=== PATIENT | female | born 1960 | race Caucasian/White ===

== ENCOUNTER 2018-04-09 16:14 | Observation (INO) | payer MEDICARE, BC ==
[2018-04-09 16:26] VITALS: BMI 25.4
--- NOTE | 2018-04-09 16:53 | ED PDOC ---
Arrival/HPI - General Chief Complaint: Eye Problem Time Seen by Provider: 04/09/18 16:20 Historian: Patient - History of Present Illness Narrative History of Present Illness (Text): 04/09/18 16:51 58 year old female whose past medical history includes brain cancer(last chemo and gamma knife in February 2018), who presents to the emergency department complaining of acute vision loss. Patient reports being at home when she noticed her vision becoming blurry, dim, and was unable to see objects at a close distance clearly. Patient denies headache, nausea, vomiting, dizziness, prior episodes, or any other complaints. Oncologist: Dr.Joseph Kirk( [phone]) Time/Duration: Prior to Arrival Symptom Onset: Sudden Symptom Course: Unchanged Context: Home Past Medical History - Provider Review Nursing Documentation Reviewed: Yes - Cardiac Hx Cardiac Disorders: No - Pulmonary Hx Respiratory Disorders: No - Neurological Hx Neurological Disorder: Yes Other/Comment: tumor in brain. - HEENT Hx HEENT Disorder: No - Renal Hx Renal Disorder: No - Endocrine/Metabolic Hx Endocrine Disorders: No - Hematological/Oncological Hx Blood Disorders: No - Integumentary Hx Dermatological Disorder: No - Musculoskeletal/Rheumatological Hx Falls: No - Gastrointestinal Hx Gastrointestinal Disorders: No - Genitourinary/Gynecological Hx Genitourinary Disorders: No Hx Reproductive Disorders: No - Psychiatric Hx Psychophysiologic Disorder: No Hx Substance Use: No Family/Social History - Physician Review Nursing Documentation Reviewed: Yes Family/Social History: No Known Family HX Smoking Status: Never Smoked Hx Alcohol Use: No Hx Substance Use: No Allergies/Home Meds Allergies/Adverse Reactions: Allergies No Known Allergies Allergy (Verified 04/09/18 16:26) Home Medications: Home Meds Medication Instructions Recorded Confirmed No Known Home Med 04/09/18 04/09/18 Review of Systems - Physician Review All systems were reviewed & negative as marked: Yes - Review of Systems Eyes: Vision Changes Gastrointestinal: absent: Nausea, Vomiting Neurological: absent: Headache, Dizziness Physical Exam Vital Signs Reviewed: Yes Vital Signs Temp Pulse Resp BP Pulse Ox 04/09/18 19:28 97.8 F 74 16 121/78 96 04/09/18 17:12 98.4 F 78 18 133/81 98 Temperature: Afebrile Blood Pressure: Normal Pulse: Regular Respiratory Rate: Normal Appearance: Positive for: Well-Appearing Mental Status: Positive for: Alert and Oriented X 3 - Systems Exam Head: Present: Atraumatic, Normocephalic Pupils: Present: PERRL Extroacular Muscles: Present: EOMI Conjunctiva: Present: Normal Mouth: Present: Moist Mucous Membranes Neck: Present: Normal Range of Motion Respiratory/Chest: Present: Clear to Auscultation, Good Air Exchange. No: Respiratory Distress, Accessory Muscle Use Cardiovascular: Present: Regular Rate and Rhythm, Normal S1, S2. No: Murmurs Abdomen: Present: Other (Obese). No: Tenderness, Distention, Peritoneal Signs Back: Present: Normal Inspection Upper Extremity: Present: Normal Inspection. No: Cyanosis, Edema Lower Extremity: Present: Normal Inspection. No: Edema Neurological: Present: GCS=15, CN II-XII Intact, Speech Normal Skin: Present: Warm, Dry, Normal Color. No: Rashes Psychiatric: Present: Alert, Oriented x 3, Normal Insight, Normal Concentration Medical Decision Making ED Course and Treatment: 04/09/18 16:55 Impression: 58 year old female complaining of acute vision changes that started earlier today. Differential Diagnosis included but are not limited to: Amaurosis Fugax Central retinal artery occlusion Retinal detachment Plan: -- Head CT without contrast -- Labs -- Blood work -- Cardiac enzyme -- Chest X-ray -- Urinalysis -- Reassess and disposition Prior Visits: Notes and results from previous visits were reviewed. Progress Notes: 04/09/18 18:30 Discussed case with Internal medicine residents, who are aware of and will evaluate patient. 04/09/18 19:15 Placed a call for . 04/09/18 19:30 Spoke to biomedical photographer who endorsed case to . 04/09/18 19:36 Discussed case with , who is aware of patient and refused the case. 04/09/18 19:56 Discussed plan with patient and . 04/09/18 19:58 Discussed case with , who is aware of and agrees to admit patient under his service. - Lab Interpretations Lab Results: 04/09/18 17:30 04/09/18 17:30 Lab Results 04/09/18 17:30: PT 10.5, INR 0.92, APTT 21.0 L 04/09/18 17:30: Sodium 138, Potassium 3.8, Chloride 102, Carbon Dioxide 27, Anion Gap 13, BUN 30 H, Creatinine 0.5 L, Est GFR ( Amer) > 60, Est GFR ( Non-Af Amer) > 60, Random Glucose 51 L, Calcium 9.2, Total Bilirubin 0.6, AST 20 , ALT 66 H, Alkaline Phosphatase 83, Troponin I < 0.01, Total Protein 6.4, Albumin 3.7, Globulin 2.7, Albumin/Globulin Ratio 1.4 04/09/18 17:30: WBC 14.4 H, RBC 4.84, Hgb 14.7, Hct 41.1, MCV 84.9, MCH 30.4, MCHC 35.8, RDW 15.1 H, Plt Count 194, MPV 8.8, Gran % 79.0 H, Lymph % (Auto) 14.1 L, [place] % (Auto) 6.8 H, Eos % (Auto) 0.0 L, Baso % (Auto) 0.1, Gran # 11.36 H, Lymph # (Auto) 2.0, [place] # (Auto) 1.0 H, Eos # (Auto) 0.0, Baso # (Auto ) 0.01 I have reviewed the lab results: Yes - RAD Interpretation Narrative RAD Interpretations (Text): 04/09/18 Chest X-ray: Creator : Greyson Arellano MD IMPRESSION: Retrocardiac density may be related to large hiatal hernia, eventration of the left hemidiaphragm or large mass. This was not present on the chest radiograph from January 2012. Correlation with interval imaging is recommended, if any. Alternatively, CT scan of the chest can be obtained for further evaluation as clinically warranted. 04/09/18 19:[address] Without Contrast: Creator : Ralph Peterson MD IMPRESSION: Infiltrating hyperdense mass in regina and midbrain and right cerebral peduncle with central necrosis. Recommend evaluation with gadolinium enhanced magnetic resonance imaging. No evidence herniation or ventriculomegaly. Radiology Orders: 04/09/18 16:52 HEAD W/O CONTRAST [CT] Stat CHEST PORTABLE [RAD] Stat Primary Care Coordinator: Radiologist - Scribe Statement The provider has reviewed the documentation as recorded by the Lyly Gerber Provider Scribe Attestation: All medical record entries made by the Scribe were at my direction and personally dictated by me. I have reviewed the chart and agree that the record accurately reflects my personal performance of the history, physical exam, medical decision making, and the department course for this patient. I have also personally directed, reviewed, and agree with the discharge instructions and disposition. Disposition/Present on Arrival - Present on Arrival History of DVT/PE: No History of Uncontrolled Diabetes: No Urinary Catheter: No History of Decub. Ulcer: No History Surgical Site Infection Following: None - Disposition Referrals: Harmeet Gill MD [Primary Care Provider] - Follow up with primary Forms: [employer] (Romansh)
--- NOTE | 2018-04-09 17:31 | RAD ---
Date of service: 04/09/2018 HISTORY: ams COMPARISON: Chest radiograph dated 01/23/2012 of. FINDINGS: LUNGS: New retrocardiac density. PLEURA: No significant pleural effusion identified, no pneumothorax apparent. CARDIOVASCULAR: Atherosclerotic aortic calcifications. Cardiomediastinal silhouette unchanged. OSSEOUS STRUCTURES: Partially imaged right shoulder reverse arthroplasty. Otherwise, unchanged. VISUALIZED UPPER ABDOMEN: Normal. OTHER FINDINGS: Right internal jugular access chest port with tip in the SVC. IMPRESSION: Retrocardiac density may be related to large hiatal hernia, eventration of the left hemidiaphragm or large mass. This was not present on the chest radiograph from January 2012. Correlation with interval imaging is recommended, if any. Alternatively, CT scan of the chest can be obtained for further evaluation as clinically warranted.
[2018-04-09 17:39] LABS: BASO # 0.01 K/mm3 (0.0-2.0); BASO % 0.1 % (0.0-3.0); GRAN # 11.36 (1.4-6.5); HEMOGLOBIN 14.7 g/dL (12.0-16.0); LYMPH % 14.1 % (22.0-35.0); MEAN CELL VOLUME 84.9 fl (80.0-105.0); MEAN CORPUSCULAR HEMOGLOBIN 30.4 pg (25.0-35.0); MEAN CORPUSCULAR HGB CONC 35.8 g/dl (31.0-37.0); MEAN PLATELET VOLUME 8.8 fl (7.0-11.0); MONO % 6.8 % (1.0-6.0); RBC 4.84 10^6/uL (3.5-6.1); RED CELL DISTRIBUTION WIDTH 15.1 % (11.5-14.5); WHITE BLOOD COUNT 14.4 10^3/ul (4.5-11.0)
[2018-04-09 17:49] LABS: BLOOD UREA NITROGEN 30 mg/dL (7-21); GFR NON-AFRICAN AMERICAN > 60
[2018-04-09 17:50] LABS: ALB/GLOB RATIO 1.4 (1.1-1.8); ALBUMIN 3.7 g/dL (3.0-4.8); ALT/SGPT 66 U/L (7-56); AST/SGOT 20 U/L (14-36); CALCIUM 9.2 mg/dL (8.4-10.5); INR 0.92; PROTHROMBIN TIME 10.5 SECONDS (9.4-12.5)
[2018-04-09 18:00] LABS: TROPONIN I < 0.01 ng/mL
--- NOTE | 2018-04-09 18:53 | CT ---
Date of service: 04/09/2018 PROCEDURE: CT HEAD WITHOUT CONTRAST. HISTORY: ams COMPARISON: Not available TECHNIQUE: Axial computed tomography images were obtained through the head/brain without intravenous contrast. Radiation dose: Total exam DLP = 854.13 mGy-cm. This CT exam was performed using one or more of the following dose reduction techniques: Automated exposure control, adjustment of the mA and/or kV according to patient size, and/or use of iterative reconstruction technique. FINDINGS: HEMORRHAGE: No intracranial hemorrhage. BRAIN: No Hyperdense mass in regina and midbrain extending through right cerebral peduncle. Centrally necrotic. Recommend further evaluation with gadolinium enhanced magnetic resonance imaging. No evidence of surrounding vasogenic edema. There is a punctate calcifications seen on the left side of this mass at the level of the regina. Uncertain significance. Mild atrophy, greater than expected for patient age. Mild chronic periventricular white matter ischemic change. No evidence of acute infarct. VENTRICLES: Unremarkable. No hydrocephalusNo ventriculomegaly. Minimal mass effect upon the right lateral aspect of the aqueduct as a result of this pontine/midbrain mass. . CALVARIUM: Unremarkable. PARANASAL SINUSES: Unremarkable as visualized. No significant inflammatory changes. MASTOID AIR CELLS: Unremarkable as visualized. No inflammatory changes. OTHER FINDINGS: None. IMPRESSION: Infiltrating hyperdense mass in regina and midbrain and right cerebral peduncle with central necrosis. Recommend evaluation with gadolinium enhanced magnetic resonance imaging. No evidence herniation or ventriculomegaly.
[2018-04-09] MEDS ORDERED: Morphine 2 mg/ml ISec IVP PRN (21:53)
[2018-04-09] MEDS: Sodium Chloride 0.45% 1,000 ML IV SCH (22:27)
[2018-04-09 22:28] VITALS: RESP 20
[2018-04-10 05:14] LABS: URINE BILIRUBIN NEGATIVE (NEGATIVE); URINE BLOOD LARGE (NEGATIVE); URINE GLUCOSE (UA) 100 mg/dL (NEGATIVE); URINE LEUKOCYTE ESTERASE SMALL Leu/uL (NEGATIVE); URINE PROTEIN TRACE mg/dL (<30 mg/dL)
[2018-04-10 05:24] LABS: URINE APPEARANCE SL CLOUDY (CLEAR)
[2018-04-10 05:25] LABS: URINE COLOR YELLOW (YELLOW)
[2018-04-10 05:33] LABS: URINE BACTERIA MANY (NEG); URINE WBC TNTC /hpf (0-6)
[2018-04-10 06:20] LABS: HEMOGLOBIN 12.4 g/dL (12.0-16.0); MEAN CELL VOLUME 86.2 fl (80.0-105.0); MEAN CORPUSCULAR HEMOGLOBIN 29.6 pg (25.0-35.0); MEAN CORPUSCULAR HGB CONC 34.3 g/dl (31.0-37.0); MEAN PLATELET VOLUME 8.7 fl (7.0-11.0); RBC 4.19 10^6/uL (3.5-6.1); RED CELL DISTRIBUTION WIDTH 15.1 % (11.5-14.5)
[2018-04-10 06:48] LABS: WHITE BLOOD COUNT 11.5 10^3/ul (4.5-11.0)
[2018-04-10 07:08] LABS: ALB/GLOB RATIO 1.3 (1.1-1.8); ALBUMIN 2.9 g/dL (3.0-4.8); ALT/SGPT 59 U/L (7-56); AST/SGOT 18 U/L (14-36); BLOOD UREA NITROGEN 27 mg/dL (7-21); CALCIUM 8.2 mg/dL (8.4-10.5); GFR NON-AFRICAN AMERICAN > 60
[2018-04-10] MEDS: cefTRIAXone 1 gm 1 GM/100 ML BAG IVPB SCH (09:21)
--- NOTE | 2018-04-10 10:41 | CP.PCM.CON ---
History of Present Illness - History of Present Illness History of Present Illness: Palliative consult requested by Dr Sherice Hernandez Reason: Goals of care /hospice discussion 58 year old female with history of brain cancer (s/p chemo/gamma knife) who presented to ED yesterday with acute vision loss. She states that her vision became blurry, dim and that she was unable to see object from afar. She states this was causing her to fall. She denied headache, nausea, vomiting, dizziness, chest/abdominal pain, neuropathy. CT of head showed hyperdense mass in regina and mid brain extending through right cerebral peduncle. Centrally necrotic, there is a punctate calcification seen on the left side of mass at the level of the regina, mild atrophy greater than expected for this patient age.Mild chronic periventricular white matter ischemic changes. MRI with nathna recommend for further evaluation.Chest x ray showed retocardiac density which may be related to hiatal hernia, eventration of the left hemidiaphragm or large mass. CT of chest recommended for for further evaluation. Labs: Wbc 14.4, Hgb 14.7, Plt 194,NA 138, K 3.8,Bun 30, K 0.5, glucose 73, AST 20, Alt 66, Alk phos 83, Troponin 0.1, albumin 3.7. Urine + glucose blood, trace leukocytes, nay bacteria PMHX brain tumor, DM,right shoulder fracture PSH:right chest port a cath, gamma RT Social History: Never smoker, no alcohol or drug use. lives with spouse. Family History: Non contributory. Advance Care Planning: The patient does not have an Advanced Directive. Review of Systems:As per HPI, 12 point review otherwise negative Past Patient History - Past Social History Smoking Status: Never Smoked - CARDIAC Hx Cardiac Disorders: Yes Hx Hypercholesterolemia: Yes - PULMONARY Hx Respiratory Disorders: No - NEUROLOGICAL Hx Neurological Disorder: Yes (left sided weakness) Other/Comment: tumor in brain. - HEENT Hx HEENT Problems: Yes (visual impairment) - RENAL Hx Chronic Kidney Disease: No - ENDOCRINE/METABOLIC Hx Endocrine Disorders: Yes Hx Diabetes Mellitus Type 2: Yes (insulin dependent) - HEMATOLOGICAL/ONCOLOGICAL Hx Blood Disorders: Yes Hx Cancer: Yes (brain tumor) Hx Chemotherapy: Yes (2016) - INTEGUMENTARY Hx Dermatological Problems: No - MUSCULOSKELETAL/RHEUMATOLOGICAL Hx Musculoskeletal Disorders: Yes Hx Falls: No Hx Fractures: Yes (right shoulder) - GASTROINTESTINAL Hx Gastrointestinal Disorders: Yes Hx Gastroesophageal Reflux: Yes - GENITOURINARY/GYNECOLOGICAL Hx Genitourinary Disorders: No - PSYCHIATRIC Hx Psychophysiologic Disorder: No - SURGICAL HISTORY Hx Surgeries: Yes Hx Orthopedic Surgery: Yes (right shoulder) Meds Allergies/Adverse Reactions: Allergies Allergy/AdvReac Type Severity Reaction Status Date / Time No Known Allergies Allergy Verified 04/09/18 16:26 - Medications Medications: Current Medications Dexamethasone (Decadron Inj) 10 mg IVP Q6H DIAZ Last Admin: 04/10/18 03:33 Dose: 10 mg Sodium Chloride (Sodium Chloride 0.45%) 1,000 mls @ 30 mls/hr IV .Q24H DIAZ Last Admin: 04/09/18 22:27 Dose: 30 mls/hr Ceftriaxone Sodium (Rocephin 1 Gram Ivpb) 1 gm in 100 mls @ 100 mls/hr IVPB DAILY DIAZ PRN Reason: Protocol Last Admin: 04/10/18 09:21 Dose: 100 mls/hr Morphine Sulfate (Morphine) 2 mg IVP Q4H PRN PRN Reason: Pain, moderate (4-7) Physical Exam - Constitutional Appears: Chronically Ill - Head Exam Additional comments: neff face - Eye Exam Eye Exam: Normal appearance, PERRL - ENT Exam ENT Exam: Mucous Membranes Moist, Normal Oropharynx - Respiratory Exam Respiratory Exam: Decreased Breath Sounds, NORMAL BREATHING PATTERN - Cardiovascular Exam Cardiovascular Exam: REGULAR RHYTHM, +S1, +S2 - GI/Abdominal Exam GI & Abdominal Exam: Normal Bowel Sounds, Soft Additional comments: no tenderness - Extremities Exam Extremities exam: Positive for: pedal edema, pedal pulses present - Neurological Exam Neurological exam: Alert, Oriented x3 - Skin Skin Exam: Dry, Warm - Additional Findings Additional findings: Palliative performance scale rating 40% Results - Vital Signs Recent Vital Signs: Last Vital Signs Temp 97.6 F 04/10/18 07:53 Pulse 71 04/10/18 07:53 Resp 20 04/10/18 07:53 BP 123/81 04/10/18 07:53 Pulse Ox 97 04/10/18 07:53 - Labs Result Diagrams: 04/10/18 06:00 04/10/18 06:00 Labs: Laboratory Results - last 24 hr 04/09/18 04/09/18 04/10/18 20:15 21:21 05:00 WBC RBC Hgb Hct MCV MCH MCHC RDW Plt Count MPV Sodium Potassium Chloride Carbon Dioxide Anion Gap BUN Creatinine Est GFR ( Amer) Est GFR (Non-Af Amer) POC Glucose (mg/dL) 73 106 Random Glucose Calcium Total Bilirubin AST ALT Alkaline Phosphatase Total Protein Albumin Globulin Albumin/Globulin Ratio Urine Color Yellow Urine Appearance Sl cloudy Urine pH 6.0 Ur Specific [place] >= 1.030 Urine Protein Trace H Urine Glucose (UA) 100 H Urine Ketones Trace H Urine Blood Large H Urine Nitrate Negative Urine Bilirubin Negative Urine Urobilinogen 1.0 H Ur Leukocyte Esterase Small H Urine RBC 2 - 5 Urine WBC Tntc Ur Epithelial Cells 1 - 3 Urine Bacteria Many 04/10/18 04/10/18 06:00 06:00 WBC 11.5 H D RBC 4.19 Hgb 12.4 D Hct 36.1 MCV 86.2 MCH 29.6 MCHC 34.3 RDW 15.1 H Plt Count 173 MPV 8.7 Sodium 134 Potassium 4.4 Chloride 99 Carbon Dioxide 28 Anion Gap 12 BUN 27 H Creatinine 0.5 L Est GFR ( Amer) > 60 Est GFR (Non-Af Amer) > 60 POC Glucose (mg/dL) Random Glucose 264 H Calcium 8.2 L Total Bilirubin 0.5 AST 18 ALT 59 H Alkaline Phosphatase 70 Total Protein 5.2 L Albumin 2.9 L Globulin 2.3 Albumin/Globulin Ratio 1.3 Urine Color Urine Appearance Urine pH Ur Specific [place] Urine Protein Urine Glucose (UA) Urine Ketones Urine Blood Urine Nitrate Urine Bilirubin Urine Urobilinogen Ur Leukocyte Esterase Urine RBC Urine WBC Ur Epithelial Cells Urine Bacteria Assessment & Plan - Assessment and Plan (Free Text) Assessment: 58 year old female with history of brain tumor last chemo 02/26, s/p gamma knife RT who presented with loss of vision, deconditioning. The patient is alert, oriented denies pain, headache. She states she last received chemotherapy in 2017, Gamma knife RT recently. States that she was fairly independent until this episode when loss of vision occurred. She lives with her who is supportive. Goals of care and advance care planning discussion ensued. The patient does not have an advanced directive. Benefits and burdens of CPR and intubation explained. She does not want these measures and completed a POLST DNR/DNI directive, her is named as her health care surrogate . The patient states that she began preliminary discussions with Dr Hernandez about hospice services. The patient states that she is considering home hospice care but wants to discuss with her first. [facility] clinical liaison met with patient, on speaker phone. Hospice services explained in detail. Questions answered. Consents signed for patient to transition to [facility] services upon discharge Time spent in goals of care and advance care planning, 50 minutes Plan: Goals of care and advance care planning: POLST/ DNR/DNI Hospice evaluation Discharge to [facility] services Neuro: Decadron 10 mg every 6 hours, CT findings noted. Neuro on consult for further recommendations
[2018-04-10] MEDS: Insulin Reg-LOW-Coverage SC SCH ×3 (12:15→21:34)
--- NOTE | 2018-04-10 14:30 | HP ---
Copied To: Isauro Hernandez DO Attending MD: Isauro Hernandez DO HISTORY OF PRESENT ILLNESS: She is in observation status. She is a 58-year-old female who came to the emergency room with acute onset of vision changes and loss of vision. She is a 58-year-old female with past medical history includes brain cancer. Last chemo and gamma knife in 02/2018. She has acute vision loss and she came to the emergency room for blurred vision, it was dim, unable to see close distance clearly and she is here. I understand from the ER doctor she wants hospice. She was being seen on the outpatient by Dr. Darius Quiles, has a sudden change in her vision. She has a tumor in the brain and was told by the ER doctor that is inoperable and has left nothing to do. I discussed with the patient a need about hospice and she agreed to that. FAMILY HISTORY: No known family history. SOCIAL HISTORY: Nonsmoker. No drinking. No drugs. ALLERGIES: NO KNOWN DRUG ALLERGIES. MEDICATIONS: She does not have any medications and not in any pain. REVIEW OF SYSTEMS: She does have acute vision changes, blurred vision, poor vision. No sore throat. No nausea, vomiting. No chest pain or palpitations. No shortness of breath or cough. No headache or dizziness. No apparent skin issues. Not anxious. PHYSICAL EXAMINATION: VITAL SIGNS: She has a 97.8 temperature, 74 pulse rate, 16 respiratory rate, 121/70 blood pressure, 96% O2 sat. GENERAL: She is well appearing, alert and oriented x3. No acute distress. Just change in vision. HEENT: Her head is atraumatic, normocephalic. Extraocular muscles are intact. Throat is moist. NECK: Supple. Thyroid midline. No palpable appreciable lymphadenopathy. HEART: Regular rate. Normal S1, S2. LUNGS: Decreased breath sounds, but clear to auscultation bilaterally. ABDOMEN: Soft, nontender. Positive bowel sounds. No guarding, no rebound or CVA tenderness. EXTREMITIES: Have no edema. NEUROLOGIC: GCS is 15. Cranial nerves II-XII intact except for vision. SKIN: Warm and dry. No apparent rashes or ulcers. LABORATORY DATA: She had multiple tests done. INR is 0.92. Sodium is 138, potassium is 3.8, anion gap is 13, BUN 30, creatinine 0.5, GFR is greater than 60, sugar is 51, calcium is 9.2, total bili is 0.6, ALT is 66, AST is 20, alk phos 83. Troponin I is less than 0.01, total protein is 6.4, albumin is 3.7. White count 14.4 in the ER, 14.7 hemoglobin, hematocrit is 41.1, platelets are 194. On the chest x-ray, there is a retrocardiac density, may be related to large hiatal hernia, eventration of the left hemidiaphragm or large mass and was not present on 01/2012 x-ray. She had a head CAT scan showed infiltrating hyperdense mass in the regina and midbrain and right cerebral peduncle with central necrosis. Her labs at this morning showed many bacteria in the urine. I will put her on Rocephin IV. The white count is down to 11.5, hemoglobin 12.4, hematocrit 36.1, platelets of 173. She has a 134 sodium, potassium 4.4, BUN 27, creatinine 0.5, GFR is greater than 60. Last blood sugar was 264. I did put her on Decadron. Calcium is 8.2, total bili is 0.5, AST is 18, ALT is 59, alk phos 70, total protein is 5.2. So, she is here with brain tumor, vision change, urinary tract infection. I have put her on Rocephin for the urinary tract infection and Decadron hoping to decrease some size of the tumor to may be help her vision, IV fluids and morphine for pain, but she is not in pain, and diet. I have called Herlinda Rosales, the hospice nurse, to get her to help us with maybe [facility] at home, also Neurology and eye doctor if there is any input they could do to help us. I do not know if there is. She is here for acute change in vision, brain tumor, urinary tract infection and hopefully going to go home on hospice if we gets that arranged. She is on observation status. Isauro Hernandez DO
--- NOTE | 2018-04-10 14:37 | CARD ---
APPROVED REPORT Date of service: 04/09/2018 EKG Measurement Heart [id number] <Conclusion> Normal sinus rhythm Possible lead reversal V1/V2 NSSTW changes Q in lll
[2018-04-10] MEDS ORDERED: Insulin Lispro (humaLOG) LOW Coverage SC SCH (16:30)
[2018-04-10 16:56] VITALS: O2SAT 98
[2018-04-10] MEDS ORDERED: Insulin Detemir 100 units/ml Vial (Levemir) SC SCH (22:00)
--- NOTE | 2018-04-11 00:38 | CON ---
Copied To: Anuj Hobson MD Attending MD: Anuj Hobson MD DATE: 04/10/2018 HISTORY OF PRESENT ILLNESS: This is a 58-year-old female with past medical history of brain cancer, status post chemo and gamma knife about a year ago and came yesterday with the sudden loss of vision, became blurry and was unable to see now she can see and can count the fingers and the patient also fell at home. Denies any nausea or vomiting. CAT scan of the head shows hyperdense mass in the regina, midbrain and cerebral peduncle and the central necrosis and the patient is able to eat and we called to evaluate the patient. PAST MEDICAL HISTORY: Diabetes, brain tumor, shoulder fracture and radiation and gamma knife therapy. SOCIAL HISTORY: Does not smoke, does not drink. PHYSICAL EXAMINATION VITAL SIGNS: Blood pressure 123/81. HEENT: Normocephalic, atraumatic. NECK: Supple. NEUROLOGIC: Cranial nerves II through XII are tested. Pupils reactive. Spontaneous movement of extremities noted. Deep tendon reflexes 1+. Plantars are downgoing. Sensory appears intact. Cerebellar gait deferred. IMPRESSION AND PLAN: A 58-year-old female with brain tumor, status post chemo and status post gamma knife treatment, came with visual loss and deconditioning. CAT scan of the head was done, which showed pontine mass and workup in progress. We will follow up. Anuj Hobson MD
[2018-04-11] MEDS: Sodium Chloride 0.45% 1,000 ML IV SCH (04:59)
[2018-04-11] MEDS: Insulin Reg-LOW-Coverage SC SCH ×2 (07:41→12:16)
[2018-04-11 08:22] VITALS: BP 123/80; PULSE 75; TEMP 97.3
[2018-04-11] MEDS: cefTRIAXone 1 gm 1 GM/100 ML BAG IVPB SCH (09:24)
--- NOTE | 2018-04-12 04:47 | DS ---
Copied To: Isauro Hernandez DO Attending MD: Isauro Hernandez DO SUBJECTIVE: She is a DNR/DNI. She is going to go home on hospice. She has brain tumor with inoperable vision changes and UTI. She is on Decadron, insulin Levemir, morphine, Rocephin and IV fluids. OBJECTIVE: VITAL SIGNS: She has a 97.3 temperature, 75 pulse, 123/80 blood pressure, 20 respiratory rate, 98% O2 sat on room air. HEENT: Head is atraumatic, normocephalic. She is alert and talking, poor vision. HEART: Regular rate. LUNGS: Decreased breath sounds. ABDOMEN: Soft. EXTREMITIES: No edema. I have put her on Decadron to try and see if I could shrink some of the tumors causing her problem and give her more. Sigh, I do not that worked. Her white count is 11.5, hemoglobin 12.4, 173. Sodium 134, potassium 4.4, BUN 27, creatinine 0.5. Last blood sugar was 246. Calcium is 8.2, total bili is 0.5, AST is 18, ALT is 59, alk phos 70, total protein is 5.2. She had urinary tract infections. She got some doses of Rocephin. The plan is to be discharged today on home hospice with [facility]. She has an inoperable brain tumor. Isauro Hernandez DO MTDD
== END 2018-04-11 13:19 | disposition home or self-care (01) ==
LOC: ED 16:14 → ERH 19:32 → 3RNO 21:58
PROVIDERS: ADMIT Family Medicine; ATTEND Family Medicine
DX: H54.7 Unspecified visual loss (principal); C71.9 Malignant neoplasm of brain, unspecified; N39.0 Urinary tract infection, site not specified; E11.9 Type 2 diabetes mellitus without complications; K21.9 Gastro-esophageal reflux disease without esophagitis; E78.00 Pure hypercholesterolemia, unspecified; Z66 Do not resuscitate; Z79.4 Long term (current) use of insulin